=== PATIENT | female | born 1995 | race Caucasian/White ===

== ENCOUNTER 2020-02-15 18:57 | Emergency (ER) | payer OTHER ==
[~2020-02-15] VITALS: Ht 157.5 cm; Wt 105.0 kg
[2020-02-15] MEDS ORDERED: IBUPROFEN 100 MG/5 ML SUSPENSION UDCUP PO ONE (20:45)
[2020-02-15] MEDS ORDERED: ACETAMINOPHEN 160 MG/5 ML SUSPENSION UDCUP PO ONE (20:45)
[2020-02-15 22:30] VITALS: BP 131/78
== END 2020-02-15 22:59 | disposition home or self-care (01) ==
LOC: EMS 19:05
DX: S01.512A Laceration without foreign body of oral cavity, initial encounter (principal); J45.909 Unspecified asthma, uncomplicated; F12.90 Cannabis use, unspecified, uncomplicated; V49.9XXA Car occupant (driver) (passenger) injured in unspecified traffic accident, initial encounter; Y93.89 Activity, other specified; Y92.89 Other specified places as the place of occurrence of the external cause; Y99.8 Other external cause status
CPT/HCPCS: 70450; 70486